=== PATIENT | male | born 1940 | race Caucasian/White ===

== ENCOUNTER 2016-05-25 13:04 | Inpatient (IN) | payer MEDICARE, OTHER ==
--- NOTE | ~2016-05-25 | DS ---
Discharge Summary [place] [id number] [facility]. [address] NAME: ALLAN CARLOS JUNIOR : 42 STATUS : DIS IN PAT#: [id number] AGE: 75 ADM/REG DATE : 05/25/16 MR#: [id number] REPORT SERV DATE: 06/09/16 DICTATED BY: BHASKAR CAMACHO JR. DATE: 06/08/16 REPORT STATUS : Draft TRANSCRIBED BY: ISRAEL DATE: 06/08/16 Data Collection from hospitalization DISCHARGE DIAGNOSES: 1. Skin cancers of the face, neck, and decubitus ulcer of the sacrum. 2. Type 2 diabetes. 3. Hypertension. 4. History of myocardial infarction. 5. Paraplegia. 6. Fecal incontinence. 7. Cataracts. CONSULTATIONS: None. PROCEDURES PERFORMED: Excision of skin cancer, right cheek (3 cm); excision of skin cancer of the nose (2 cm); excision of skin cancer of the left side of the neck (6 cm); split thickness skin graft to the defect of the cheek, 3.5 x 3.5 - the nose 2 x 1 - later closure of the neck and also wound bed preparation of sacral ulcer 5 x 1.5 x 0.5 with split- thickness skin graft, 05/25/2016. PATHOLOGY: Skin and subcutaneous tissue, right cheek excision-infiltrative basal cell carcinoma, margins free. Maximal tumor thickness less than 3 mm and limited to dermis. Angiolymphatic invasion not identified. Perineural invasion not identified. Skin and subcutaneous tissue, bridge of nose excision-invasive nodular basal cell carcinoma, margins free. Maximal tumor thickness less than 2.5 mm. Angiolymphatic invasion not identified. Perineural invasion not identified. Skin and subcutaneous tissue, left side of neck excision-invasive squamous cell carcinoma, margins negative, but focally closed. Tumor extends to within a fraction of a millimeter of the deep margins. Maximal tumor thickness 6.5 mm, tumor extends into the deep dermis nearly to the subcutaneous interface, grade- poorly differentiated. Angiolymphatic invasion not identified. Perineural invasion not identified. DISCHARGE MEDICATIONS: Ventolin two puffs via inhaler every six hours as needed, Tenormin 25 mg twice a day, Kaopectate 524 mg as needed, Lomotil 2.5 mg twice a day as needed, Amaryl 2 mg every morning, Synthroid 50 mcg every morning, Prinivil 10 mg every morning, Imodium 2 mg as needed, multivitamin with minerals one tablet daily, Prilosec 40 mg twice a day, Metamucil powder one dose at noon as needed, Coumadin 4 mg daily at 6 p.m. CONDITION AT DISCHARGE: Stable. DISPOSITION: The patient was discharged home to be followed by home health care on a regular diet with activities as instructed. He would follow up at the [facility] with me, 06/15/2016 and with his primary care provider as needed. HOSPITAL COURSE: This is a 75-year-old man, who has a history of quadriplegia. He has a longstanding sacral ulcer, which has improved. There was a persistent ulcer and appropriate closure was felt indicated. Additionally, the patient has skin cancers of the right cheek, nose, and left side of the neck. It was felt that excision and appropriate closure was Discharge Summary [address] [address] NAME: ALLAN CARLOS JUNIOR : 42 STATUS : DIS IN PAT#: [id number] AGE: 75 ADM/REG DATE : 05/25/16 MR#: [id number] REPORT SERV DATE: 06/09/16 DICTATED BY: BHASKAR CAMACHO JR. DATE: 06/08/16 REPORT STATUS : Draft TRANSCRIBED BY: ISRAEL DATE: 06/08/16 indicated for disease control. Treatment options were discussed and it was elected to proceed with surgical intervention. He was admitted to the hospital at this time for further evaluation and treatment. Upon admission, he was taken to the operating room, where he underwent the above-mentioned procedure. He tolerated this well and there were no complications. On postop day #1, his wounds looked okay. He was progressing satisfactorily. The patient has protein-calorie malnutrition. In the next couple of days, he continued to progress satisfactorily. He had no new complaints. Supportive care continued. The wound VAC remained in place. His dressings were changed. Discharge planning was performed. On 05/30/2016, discharge instructions were given. Due to his improved and stable condition, he was discharged home to be followed by home health care with the above-stated instructions. Information collected by: Idania Pepper I submit the above information as my discharge summary. CAITLIN/MODL Bhaskar Camacho Jr., M.D. / [id number] CC: Randa Deleon Jr., STEPHEN
--- NOTE | ~2016-05-25 | OP ---
Record Of Operation [facility] [address] [place]. [address] NAME: ALLAN CARLOS JUNIOR : 42 STATUS : ADM IN PAT#: [id number] AGE: 75 ADM/REG DATE : 05/25/16 MR#: [id number] REPORT SERV DATE: 05/26/16 DICTATED BY: BHASKAR CAMACHO JR. DATE: 05/25/16 REPORT STATUS : Draft TRANSCRIBED BY: ISRAEL DATE: 05/25/16 DATE OF PROCEDURE: SURGEON: Bhaskar Camacho M.D. [employer] HELPER: Kyle Mccloud. PROCEDURE: Excision of skin cancer right cheek (3 cm), excision of skin cancer of the nose (2 cm), excision of skin cancer of the left side of the neck (6 cm). Split-thickness skin graft to the defect of the cheek 3.5 x 3.5, the nose 2 x 1, layered closure of the neck, and also wound bed preparation of sacral ulcer 5 x 1.5 x 0.5 with split-thickness skin graft. PREOPERATIVE DIAGNOSES: Skin cancers of the face and neck and decubitus ulcer of the sacrum. POSTOPERATIVE DIAGNOSES: Skin cancers of the face and neck and decubitus ulcer of the sacrum. ANESTHESIA: General. INDICATIONS: This patient has history of paraplegia, has longstanding sacral ulcer which has improved. There was persistent ulcer, and appropriate closure is indicated. Additionally, he has skin cancers of the right cheek, nose, and left side of the neck, and excision and appropriate closure is indicated for disease control. FINDINGS: There was a lesion of the right cheek. It was excised, it measured 3 cm in greatest dimension. Frozen section showed negative margins and probable basal cell carcinoma. The nose lesion was excised. Again negative margins were achieved for what appeared to be a basal cell. The left side of the neck was also excised with negative margins, and this appeared to be squamous. The neck was closed with layered closure, the nose and cheek with split-thickness skin graft. The sacral ulcer was 5 x 1.5 x 0.5, and this was prepped and partially closed inferior and also graft with negative pressure dressing. DESCRIPTION OF PROCEDURE: With adequate general anesthesia, the patient was initially in the supine position. The face, neck, and right thigh were prepped and draped sterilely. About 0.5% Marcaine with epinephrine was used for local filtration. An incision was outlined around the cheek, nose, and neck securing a 0.5 cm margin, grossly negative skin. Incisions were made, and full-thickness excisions of the cheek and nose were undertaken. These were submitted to pathology with appropriate orientation. The neck was excised, and this included the platysma muscle and even little bit of the underlying sternomastoid muscle in view of the depth of invasion. Bleeders were all controlled with electrocautery. The neck was closed in layers with subcutaneous 3-0 Vicryl and subcuticular Monocryl. A split- thickness graft was harvested in the right thigh, 0.18 inches, it was pie crusted with an 11 blade, was cut to appropriate size, then placed to cover the cheek and nose lesions. It was secured in place with Monocryl sutures. Then, a Restore Contact Layer and sterile gauze pressure dressing were applied securing it with overlying sutures. The neck was dressed Record Of Operation [address] [address] NAME: ALLAN CARLOS JUNIOR : 42 STATUS : ADM IN PAT#: [id number] AGE: 75 ADM/REG DATE : 05/25/16 MR#: [id number] REPORT SERV DATE: 05/26/16 DICTATED BY: BHASKAR CAMACHO JR. DATE: 05/25/16 REPORT STATUS : Draft TRANSCRIBED BY: ISRAEL DATE: 05/25/16 with sterile glue. The donor site was dressed with Rulo skin substitute, Restore and Rulo and gauze, Army Felix dressing. The patient was then turned laterally, and the buttock area was prepped and draped. With a 10 blade, the wound bed was prepped, excising the base and also the edges. The inferior aspect was closed with 4-0 nylon and then remaining skin graft was placed to cover the defect. Again it was secured with Monocryl suture. Then, an Acticoat Flex was placed along with a gauze dressing and an overlay GABINO negative pressure dressing. The patient then left the operating room in satisfactory condition. ESTIMATED BLOOD LOSS: 50 mL. JACQUELINE/ISRAEL Bhaskar Camacho Jr., M.D. / [id number] CC: Bhaskar Camacho Jr., M.D.
[~2016-05-25 13:04] MED LIST: ACCUNE1 INH; AMARYL2 PO; AMOXIL875 MG PO; ATEN25 PO; C5 PO; COUMADIN4 MG PO; FLOMAX4 PO; GAS-X80 MG PO; HUMULIN R1 ML SC; IMOD PO; JANUVIA100 MG PO; KAOPECTAT2 PO; KLOR-CON M2020 MEQ PO; LOM PO; METAMUCIL CAN7 OZ PO; MULTIVIT/MIN PO; PRILOSEC40 MG PO; PRIN10 PO; PRIN2.5 PO; REM15 PO; SYN.05 PO; VENTOLIN HFA INH
[2016-05-25 14:15] LABS: BASOPHILS 0.6 %; BASOPHILS ABSOLUTE 0.05 10/3/uL (0.0-0.16); EOSINOPHILS 4.3 %; EOSINOPHILS ABSOLUTE 0.38 10/3/uL (0.0-0.53); HEMATOCRIT 34.6 % (40.0-51.0); HEMOGLOBIN 11.3 g/dL (13.6-17.8); IMMATURE GRANULOCYTES 0.2 %; IMMATURE GRANULOCYTES ABSOLUTE 0.02 10/3/uL (0.0-0.11); LYMPHOCYTES 17.3 %; LYMPHOCYTES ABSOLUTE 1.53 10/3/uL (0.67-4.30); MANUAL DIFF NO %; MEAN CORPUS HGB CONC 32.7 g/dL (32.0-36.0); MEAN CORPUSCULAR HEMOGLOB 30.5 pg (26.0-34.0); MEAN CORPUSCULAR VOLUME 93.5 fL (80-100); MEAN PLATELET VOLUME 11.7 fL (9.2-13.0); MONOCYTES 6.8 %; NEUTROPHILS 70.8 %; NEUTROPHILS ABSOLUTE 6.25 10/3/uL (2.02-8.40); PLATELET COUNT 226 10/3/uL (150-400); RBC DISTRIBUTION WIDTH 15.7 % (12.0-16.0); WHITE BLOOD CELLS 8.8 10/3/uL (4.5-10.5)
[2016-05-25 14:27] LABS: INTERNATIONAL NORMAL RATI 0.8 UNITS (-)
[2016-05-25 14:29] LABS: A/G RATIO 0.5 (0.7-1.9); ALBUMIN 2.6 G/DL (3.5-5.0); ALKALINE PHOSPHATASE 165 U/L (45-117); BUN (BLOOD UREA NITROGEN) 23 MG/DL (6-23); CALCIUM, SERUM 8.1 MG/DL (8.5-10.4); CHLORIDE, SERUM 107 MMOL/L (96-112); CO2 (CARBON DIOXIDE) 24 MMOL/L (24-34); CREATININE 0.64 MG/DL (0.70-1.30); GFR AFRICAN AMERICAN 112 ML/MIN (>=60); GFR NON AFRICAN AMERICAN 96 ML/MIN (>=60); GLOBULIN 4.8 G/DL (2.5-4.1); GLUCOSE, SERUM 78 MG/DL (60-99); POTASSIUM, SERUM 3.5 MMOL/L (3.5-5.3); SGOT(AST) 29 U/L (5-40); SGPT(ALT) 16 U/L (5-65); SODIUM, SERUM 141 MMOL/L (135-148); TOTAL BILIRUBIN 0.7 MG/DL (0-1.2); TOTAL PROTEIN 7.4 G/DL (6.0-8.5)
[2016-05-25 14:44] LABS: PARTIAL THROMBO TIME 23.8 SEC (22.5-37.2)
[2016-05-25 14:45] LABS: PROTIME (NOT ORD) 11.1 SEC (12.0-14.5)
[2016-05-26 06:51] LABS: BASOPHILS 0.5 %; BASOPHILS ABSOLUTE 0.05 10/3/uL (0.0-0.16); EOSINOPHILS 2.5 %; EOSINOPHILS ABSOLUTE 0.26 10/3/uL (0.0-0.53); HEMATOCRIT 31.3 % (40.0-51.0); HEMOGLOBIN 10.3 g/dL (13.6-17.8); IMMATURE GRANULOCYTES 0.2 %; IMMATURE GRANULOCYTES ABSOLUTE 0.02 10/3/uL (0.0-0.11); LYMPHOCYTES ABSOLUTE 0.85 10/3/uL (0.67-4.30); MEAN CORPUS HGB CONC 32.9 g/dL (32.0-36.0); MEAN CORPUSCULAR VOLUME 91.3 fL (80-100); MEAN PLATELET VOLUME 10.6 fL (9.2-13.0); MONOCYTES 5.8 %; MONOCYTES ABSOLUTE 0.61 10/3/uL (0.21-1.20); NEUTROPHILS ABSOLUTE 8.77 10/3/uL (2.02-8.40); PLATELET COUNT 222 10/3/uL (150-400); RBC DISTRIBUTION WIDTH 15.8 % (12.0-16.0); RED CELL COUNT 3.43 10/6/uL (4.7-6.1); WHITE BLOOD CELLS 10.6 10/3/uL (4.5-10.5)
[2016-05-26 06:55] LABS: INTERNATIONAL NORMAL RATI 1.1 UNITS (-); MANUAL DIFF NO %; PROTIME (NOT ORD) 14.2 SEC (12.0-14.5)
[2016-05-26 07:08] LABS: A/G RATIO 0.5 (0.7-1.9); ALBUMIN 2.1 G/DL (3.5-5.0); BUN (BLOOD UREA NITROGEN) 20 MG/DL (6-23); CALCIUM, SERUM 7.4 MG/DL (8.5-10.4); CHLORIDE, SERUM 106 MMOL/L (96-112); CO2 (CARBON DIOXIDE) 22 MMOL/L (24-34); GFR AFRICAN AMERICAN 102 ML/MIN (>=60); GFR NON AFRICAN AMERICAN 88 ML/MIN (>=60); POTASSIUM, SERUM 3.8 MMOL/L (3.5-5.3); SGOT(AST) 25 U/L (5-40); SGPT(ALT) 16 U/L (5-65); SODIUM, SERUM 140 MMOL/L (135-148); TOTAL BILIRUBIN 0.7 MG/DL (0-1.2); TOTAL PROTEIN 6.1 G/DL (6.0-8.5)
[2016-05-26 07:09] LABS: ALKALINE PHOSPHATASE 147 U/L (45-117); GLUCOSE, SERUM 177 MG/DL (60-99)
[2016-05-26 07:17] LABS: PREALBUMIN 8.8 MG/DL (17.0-43.0)
[2016-05-27 04:50] LABS: BASOPHILS 0.7 %; BASOPHILS ABSOLUTE 0.05 10/3/uL (0.0-0.16); EOSINOPHILS 7.4 %; EOSINOPHILS ABSOLUTE 0.53 10/3/uL (0.0-0.53); HEMATOCRIT 29.7 % (40.0-51.0); HEMOGLOBIN 9.7 g/dL (13.6-17.8); IMMATURE GRANULOCYTES 0.1 %; IMMATURE GRANULOCYTES ABSOLUTE 0.01 10/3/uL (0.0-0.11); LYMPHOCYTES 18.1 %; LYMPHOCYTES ABSOLUTE 1.29 10/3/uL (0.67-4.30); MEAN CORPUS HGB CONC 32.7 g/dL (32.0-36.0); MEAN CORPUSCULAR HEMOGLOB 30.8 pg (26.0-34.0); MEAN PLATELET VOLUME 10.6 fL (9.2-13.0); MONOCYTES 9.7 %; MONOCYTES ABSOLUTE 0.69 10/3/uL (0.21-1.20); NEUTROPHILS ABSOLUTE 4.56 10/3/uL (2.02-8.40); PLATELET COUNT 184 10/3/uL (150-400); RBC DISTRIBUTION WIDTH 15.8 % (12.0-16.0); RED CELL COUNT 3.15 10/6/uL (4.7-6.1); WHITE BLOOD CELLS 7.1 10/3/uL (4.5-10.5)
[2016-05-27 04:51] LABS: MANUAL DIFF NO %; MEAN CORPUSCULAR VOLUME 94.3 fL (80-100)
[2016-05-27 05:42] LABS: BUN (BLOOD UREA NITROGEN) 28 MG/DL (6-23); CALCIUM, SERUM 7.8 MG/DL (8.5-10.4); CHLORIDE, SERUM 107 MMOL/L (96-112); CO2 (CARBON DIOXIDE) 26 MMOL/L (24-34); GFR AFRICAN AMERICAN 102 ML/MIN (>=60); GFR NON AFRICAN AMERICAN 88 ML/MIN (>=60); GLUCOSE, SERUM 94 MG/DL (60-99); POTASSIUM, SERUM 4.6 MMOL/L (3.5-5.3); SODIUM, SERUM 142 MMOL/L (135-148)
[2016-05-27 08:30] LABS: INTERNATIONAL NORMAL RATI 1.2 UNITS (-); PROTIME (NOT ORD) 14.8 SEC (12.0-14.5)
[2016-05-28 05:54] LABS: INTERNATIONAL NORMAL RATI 1.1 UNITS (-); PROTIME (NOT ORD) 14.2 SEC (12.0-14.5)
[2016-05-29 06:57] LABS: BASOPHILS 0.3 %; BASOPHILS ABSOLUTE 0.03 10/3/uL (0.0-0.16); EOSINOPHILS ABSOLUTE 0.43 10/3/uL (0.0-0.53); HEMATOCRIT 28.7 % (40.0-51.0); HEMOGLOBIN 9.5 g/dL (13.6-17.8); IMMATURE GRANULOCYTES 0.4 %; IMMATURE GRANULOCYTES ABSOLUTE 0.04 10/3/uL (0.0-0.11); LYMPHOCYTES 12.3 %; LYMPHOCYTES ABSOLUTE 1.34 10/3/uL (0.67-4.30); MEAN CORPUS HGB CONC 33.1 g/dL (32.0-36.0); MEAN CORPUSCULAR HEMOGLOB 30.8 pg (26.0-34.0); MEAN CORPUSCULAR VOLUME 93.2 fL (80-100); MEAN PLATELET VOLUME 10.9 fL (9.2-13.0); MONOCYTES 7.8 %; MONOCYTES ABSOLUTE 0.85 10/3/uL (0.21-1.20); NEUTROPHILS 75.2 %; NEUTROPHILS ABSOLUTE 8.19 10/3/uL (2.02-8.40); PLATELET COUNT 203 10/3/uL (150-400); RED CELL COUNT 3.08 10/6/uL (4.7-6.1)
[2016-05-29 07:13] LABS: INTERNATIONAL NORMAL RATI 1.2 UNITS (-); MANUAL DIFF NO %; PROTIME (NOT ORD) 14.9 SEC (12.0-14.5); WHITE BLOOD CELLS 10.9 10/3/uL (4.5-10.5)
[2016-05-29 07:19] LABS: A/G RATIO 0.5 (0.7-1.9); ALBUMIN 2.1 G/DL (3.5-5.0); ALKALINE PHOSPHATASE 126 U/L (45-117); BUN (BLOOD UREA NITROGEN) 41 MG/DL (6-23); CALCIUM, SERUM 8.8 MG/DL (8.5-10.4); CHLORIDE, SERUM 107 MMOL/L (96-112); CO2 (CARBON DIOXIDE) 25 MMOL/L (24-34); CREATININE 0.94 MG/DL (0.70-1.30); GFR AFRICAN AMERICAN 92 ML/MIN (>=60); GFR NON AFRICAN AMERICAN 80 ML/MIN (>=60); GLOBULIN 4.5 G/DL (2.5-4.1); GLUCOSE, SERUM 110 MG/DL (60-99); POTASSIUM, SERUM 4.9 MMOL/L (3.5-5.3); PREALBUMIN 10.9 MG/DL (17.0-43.0); SGOT(AST) 21 U/L (5-40); SGPT(ALT) 8 U/L (5-65); SODIUM, SERUM 140 MMOL/L (135-148); TOTAL BILIRUBIN 0.2 MG/DL (0-1.2); TOTAL PROTEIN 6.6 G/DL (6.0-8.5)
[2016-05-30 06:35] LABS: INTERNATIONAL NORMAL RATI 1.2 UNITS (-); PROTIME (NOT ORD) 15.1 SEC (12.0-14.5)
[2016-05-30 06:41] LABS: BUN (BLOOD UREA NITROGEN) 49 MG/DL (6-23); CALCIUM, SERUM 8.5 MG/DL (8.5-10.4); CHLORIDE, SERUM 106 MMOL/L (96-112); CO2 (CARBON DIOXIDE) 28 MMOL/L (24-34); CREATININE 0.81 MG/DL (0.70-1.30); GFR AFRICAN AMERICAN 101 ML/MIN (>=60); GFR NON AFRICAN AMERICAN 88 ML/MIN (>=60); GLUCOSE, SERUM 99 MG/DL (60-99); POTASSIUM, SERUM 4.2 MMOL/L (3.5-5.3); SODIUM, SERUM 141 MMOL/L (135-148)
== END 2016-05-30 13:03 | disposition home health service (06) | DRG 573 ==
LOC: SDC/OF 13:04 → 5SO 20:12
PROVIDERS: Specialist
PROC: 0HR6X74 Replacement of Back Skin with Autologous Tissue Substitute, Partial Thickness, External Approach (ICD-10-PCS; principal; 2016-05-25 14:45)
PROC: 0HB1XZZ Excision of Face Skin, External Approach (ICD-10-PCS; principal; 2016-05-25 14:45)
PROC: 0HR1X74 Replacement of Face Skin with Autologous Tissue Substitute, Partial Thickness, External Approach (ICD-10-PCS; principal; 2016-05-25 14:45)
DX: L89.153 Pressure ulcer of sacral region, stage 3 (principal); E43 Unspecified severe protein-calorie malnutrition; G82.20 Paraplegia, unspecified; E11.9 Type 2 diabetes mellitus without complications; J44.9 Chronic obstructive pulmonary disease, unspecified; Z68.1 Body mass index [BMI] 19.9 or less, adult; C44.301 Unspecified malignant neoplasm of skin of nose; C44.309 Unspecified malignant neoplasm of skin of other parts of face; C44.40 Unspecified malignant neoplasm of skin of scalp and neck; Z88.8 Allergy status to other drugs, medicaments and biological substances; I25.10 Atherosclerotic heart disease of native coronary artery without angina pectoris; I25.2 Old myocardial infarction; I10 Essential (primary) hypertension; Z79.899 Other long term (current) drug therapy; Z79.01 Long term (current) use of anticoagulants
CPT/HCPCS: 71010; 80048; 80053; 82962; 83735; 84134; 85025; 85610; 85730; 88305; 88331; 88332; 88341; 88342; 93005; A9270-GY; J0690; J2250; J2405; J2710; J3010